=== PATIENT | male | born 1995 | race Caucasian/White ===

== ENCOUNTER 2018-05-08 16:02 | Inpatient (IN) | payer OTHER ==
[~2018-05-08] VITALS: Ht 172.7 cm; Wt 81.6 kg
[2018-05-08 20:20] VITALS: BP 117/79
[2018-05-08] MEDS ORDERED: LORAZEPAM 2 MG/1 ML VIAL IM PRN (20:30)
[2018-05-08] MEDS ORDERED: ONDANSETRON 4 MG/2 ML VIAL IM PRN (20:30)
[2018-05-08] MEDS ORDERED: LOPERAMIDE HCL 2 MG CAPSULE PO PRN ×2 (20:30)
[2018-05-08] MEDS ORDERED: MIRALAX 17 GM POWD.PACK PO PRN (20:30)
[2018-05-08] MEDS ORDERED: 5 DAY TAPER OF LORAZEPAM -SERENITY PROTOCOL PO PRN (20:30)
[2018-05-08] MEDS ORDERED: MAGNESIUM HYDROXIDE 30 ML LIQUID UDC PO PRN (20:30)
[2018-05-08] MEDS ORDERED: ONDANSETRON ODT 4 MG TAB.RAPDIS SL PRN (20:30)
[2018-05-08] MEDS ORDERED: THIAMINE HCL 200 MG/2 ML VIAL IM ONE (20:30)
[2018-05-08] MEDS ORDERED: LORAZEPAM 1 MG TABLET PO PRN ×2 (20:30)
[2018-05-08 21:02] LABS: *AMPHETAMINE, URINE NEGATIVE (NEGATIVE); *BARBITURATE, URINE NEGATIVE (NEGATIVE); *CANNABINOID, URINE POSITIVE (NEGATIVE); *COCCAINE, URINE NEGATIVE (NEGATIVE); *OPIATE, URINE NEGATIVE (NEGATIVE); *PHENCYCLIDINE SCREEN,URINE NEGATIVE (NEGATIVE)
[2018-05-08] MEDS: diphenhydrAMINE 50 MG CAPSULE PO PRN (21:11)
[2018-05-08] MEDS: IBUPROFEN 400 MG TABLET PO PRN (21:11)
[2018-05-08] MEDS ORDERED: HYDR50CA5 PO (22:38)
[2018-05-08] MEDS ORDERED: BUPR200T PO (22:38)
[2018-05-08] MEDS ORDERED: BUPR150T10 PO (22:38)
[2018-05-08] MEDS ORDERED: VIT1CAPS PO (22:38)
[2018-05-08] MEDS ORDERED: PROP20TA7 PO (22:38)
[2018-05-08] MEDS ORDERED: [UNRECOGNIZED DRUG - OTHER] (22:38)
[2018-05-08] MEDS ORDERED: B CO1TAB6 PO (22:38)
[2018-05-08] MEDS ORDERED: CIDE600C PO (22:38)
[2018-05-08] MEDS ORDERED: ACET-73 PO (22:38)
[2018-05-08] MEDS ORDERED: [UNRECOGNIZED DRUG - REMARK] PO (22:38)
[2018-05-08] MEDS ORDERED: NALT50TA PO (22:38)
[2018-05-08 22:50] LABS: BASOPHILS # (AUTO) 0.1 K/uL (0.0-8.0); BASOPHILS % (AUTO) 0.7 % (0.0-2.0); EOSINOPHILS # (AUTO) 0.1 K/uL (0.0-0.7); EOSINOPHILS % (AUTO) 1.5 % (0.0-7.0); HEMATOCRIT 43.1 % (36.7-47.1); HEMOGLOBIN 14.5 g/dL (12.5-16.3); LYMPHOCYTES # (AUTO) 2.1 K/uL (20.0-40.0); LYMPHOCYTES % (AUTO) 25.9 % (20.5-51.5); MEAN CORPUSCULAR HEMOGLOBIN 30.8 uug (23.8-33.4); MEAN CORPUSCULAR HGB CONC 34 g/dL (32.5-36.3); MEAN CORPUSCULAR VOLUME 91.5 fL (73.0-96.2); MONOCYTES # (AUTO) 1.3 K/uL (2.0-10.0); MONOCYTES % (AUTO) 15.9 % (0.0-11.0); NEUTROPHILS # (AUTO) 4.6 K/uL (1.8-8.9); PLATELET COUNT (AUTO) 331 K/uL (152-348); RED BLOOD CELL COUNT(AUTO) 4.71 MIL/uL (4.06-5.63); WHITE BLOOD COUNT (AUTO) 8.1 K/uL (3.6-10.2)
[2018-05-08 22:52] LABS: ETHANOL < 3 MG/DL (0-0)
[2018-05-08 22:58] LABS: THYROID STIMULATING HORMONE 3.077 mIU/mL (0.358-3.740)
[2018-05-08 23:04] LABS: ALANINE AMINOTRANSFERASE 30 U/L (16-63); ALKALINE PHOSPHATASE 60 U/L (50-136); AMYLASE 74 U/L (25-115); ASPARTATE AMINOTRANSFERASE 17 U/L (15-37); BILIRUBIN,TOTAL 0.3 mg/dL (0.2-1.0); CARBON DIOXIDE 32 mmol/L (21-32); CHLORIDE 104 mmol/L (98-107); GLUCOSE 68 mg/dL (74-106); LIPASE 176 U/L (73-393); MAGNESIUM 2.2 mg/dL (1.8-2.4); POTASSIUM 4.3 mmol/L (3.5-5.1); TOTAL PROTEIN, SERUM 7.5 g/dL (6.4-8.2); UREA NITROGEN, BLOOD 10 mg/dL (7-18)
[2018-05-08] MEDS ORDERED: DIPH25CA83 PO (23:21)
[2018-05-08] MEDS ORDERED: KETO120S2 TP (23:21)
[2018-05-08] MEDS ORDERED: KETOCONAZOLE 2% EXT (23:21)
[2018-05-09] VITALS: BP 102/61
[2018-05-09] MEDS ORDERED: PREPARATION H C TP (00:04)
[2018-05-09 01:58] LABS: EOSINOPHILS % (MANUAL) 3 % (0-8); LYMPHOCYTES % (MANUAL) 23 % (20-40); MONOCYTES % (MANUAL) 22 % (2-10); NEUTROPHILS % (MANUAL) 52 % (42-75)
[2018-05-09 04:00] VITALS: BP 92/52
[2018-05-09 08:00] VITALS: BP 97/55
[2018-05-09] MEDS: LORAZEPAM 1 MG TABLET PO SCH ×4 (08:33→20:40)
[2018-05-09] MEDS: FOLIC ACID 1 MG TABLET PO SCH (08:33)
[2018-05-09] MEDS: MULTIVITAMINS,THERAPEUTIC TABLET PO SCH (08:33)
[2018-05-09] MEDS: THIAMINE HCL 100 MG TABLET PO SCH (08:37)
[2018-05-09] MEDS ORDERED: TUBERCULIN,PURIF.PROT.DERIV. 5 TU/0.1 ML TEST ID ONE (09:00)
[2018-05-09 12:18] VITALS: BP 92/47
[2018-05-09 16:30] VITALS: BP 110/72
[2018-05-09] MEDS: buPROPion XL 150 MG TAB.SR.24H PO SCH (17:11)
[2018-05-09 20:00] VITALS: BP 98/62
[2018-05-10] VITALS: BP 111/66
[2018-05-10 04:00] VITALS: BP 106/64
[2018-05-10 07:06] LABS: HEPATITIS B SURFACE AG Negative (Negative)
[2018-05-10 08:00] VITALS: BP 105/69
[2018-05-10] MEDS: FOLIC ACID 1 MG TABLET PO SCH (08:11)
[2018-05-10] MEDS: THIAMINE HCL 100 MG TABLET PO SCH (08:11)
[2018-05-10] MEDS: buPROPion XL 150 MG TAB.SR.24H PO SCH (08:11)
[2018-05-10] MEDS: LORAZEPAM 1 MG TABLET PO SCH ×3 (08:11→20:21)
[2018-05-10] MEDS: MULTIVITAMINS,THERAPEUTIC TABLET PO SCH (08:11)
[2018-05-10 14:12] VITALS: BP 109/74
[2018-05-10] MEDS ORDERED: KETOCONAZOLE 2% SHAMPOO 120 ML BOTTLE TP SCH (15:15)
[2018-05-10 17:40] VITALS: BP 135/82
[2018-05-10 20:00] VITALS: BP 126/78
[2018-05-10] MEDS ORDERED: METHOCARBAMOL 750 MG TABLET PO ONE (21:00)
[2018-05-11] VITALS: BP 123/82
[2018-05-11 08:21] VITALS: BP 118/68
[2018-05-11] MEDS: LORAZEPAM 1 MG TABLET PO SCH ×4 (08:43→20:10)
[2018-05-11] MEDS: THIAMINE HCL 100 MG TABLET PO SCH (08:43)
[2018-05-11] MEDS: FOLIC ACID 1 MG TABLET PO SCH (08:44)
[2018-05-11] MEDS: buPROPion XL 150 MG TAB.SR.24H PO SCH (08:44)
[2018-05-11] MEDS: MULTIVITAMINS,THERAPEUTIC TABLET PO SCH (08:44)
[2018-05-11 12:49] VITALS: BP 121/74
[2018-05-11 17:12] VITALS: BP 107/72
[2018-05-11] MEDS ORDERED: KETOROLAC TROMETHAMINE 30 MG INJ IM PRN (19:30)
[2018-05-11 20:00] VITALS: BP 122/77
[2018-05-11] MEDS: HYDROXYZINE PAMOATE 25 MG CAPSULE PO PRN (20:13)
[2018-05-12 08:23] VITALS: BP 105/71
[2018-05-12] MEDS: MULTIVITAMINS,THERAPEUTIC TABLET PO SCH (08:47)
[2018-05-12] MEDS: FOLIC ACID 1 MG TABLET PO SCH (08:48)
[2018-05-12] MEDS: LORAZEPAM 1 MG TABLET PO SCH ×3 (08:48→20:05)
[2018-05-12] MEDS: THIAMINE HCL 100 MG TABLET PO SCH (08:48)
[2018-05-12] MEDS: buPROPion XL 150 MG TAB.SR.24H PO SCH (08:48)
[2018-05-12 13:23] VITALS: BP 115/72
[2018-05-12] MEDS: MAG HYDROX/AL HYDROX/SIMETH 30 ML LIQUID UDC PO PRN ×2 (14:01→22:59)
[2018-05-12 17:11] VITALS: BP 124/85
[2018-05-12 20:00] VITALS: BP 119/77
[2018-05-12] MEDS: METHOCARBAMOL 750 MG TABLET PO PRN (20:05)
[2018-05-12] MEDS: IBUPROFEN 400 MG TABLET PO PRN (20:05)
[2018-05-13 08:00] VITALS: BP 111/72
[2018-05-13] MEDS: MULTIVITAMINS,THERAPEUTIC TABLET PO SCH (08:32)
[2018-05-13] MEDS: FOLIC ACID 1 MG TABLET PO SCH (08:33)
[2018-05-13] MEDS: THIAMINE HCL 100 MG TABLET PO SCH (08:33)
[2018-05-13] MEDS: buPROPion XL 150 MG TAB.SR.24H PO SCH (08:33)
[2018-05-13] MEDS: METHOCARBAMOL 750 MG TABLET PO PRN ×2 (08:46→20:54)
[2018-05-13] MEDS: LORAZEPAM 1 MG TABLET PO SCH ×2 (08:49→20:54)
[2018-05-13 12:00] VITALS: BP 123/94
[2018-05-13 16:00] VITALS: BP 116/78
[2018-05-13] MEDS: MAG HYDROX/AL HYDROX/SIMETH 30 ML LIQUID UDC PO PRN (19:30)
[2018-05-13 20:04] VITALS: BP 125/71
[2018-05-13] MEDS: CLONIDINE HCL 0.1 MG TABLET PO PRN (22:08)
[2018-05-13] MEDS: diphenhydrAMINE 50 MG CAPSULE PO PRN (22:08)
[2018-05-14 08:00] VITALS: BP 109/70
[2018-05-14] MEDS: THIAMINE HCL 100 MG TABLET PO SCH (08:36)
[2018-05-14] MEDS: FOLIC ACID 1 MG TABLET PO SCH (08:36)
[2018-05-14] MEDS: buPROPion XL 150 MG TAB.SR.24H PO SCH (08:36)
[2018-05-14] MEDS: METHOCARBAMOL 750 MG TABLET PO PRN (08:36)
[2018-05-14] MEDS: MULTIVITAMINS,THERAPEUTIC TABLET PO SCH (08:36)
[2018-05-14 12:00] VITALS: BP 116/73
[2018-05-14] MEDS ORDERED: METH-406 PO (14:45)
[2018-05-14] MEDS ORDERED: CLON0.1T14 PO (14:45)
[2018-05-14] MEDS ORDERED: BUPR-96 PO (14:45)
[2018-05-14] MEDS: IBUPROFEN 400 MG TABLET PO PRN (15:19)
[2018-05-14 16:00] VITALS: BP 119/75
[2018-05-14 20:00] VITALS: BP 118/70
[2018-05-14] MEDS: HYDROXYZINE PAMOATE 25 MG CAPSULE PO PRN (21:15)
[2018-05-14] MEDS: diphenhydrAMINE 50 MG CAPSULE PO PRN (21:15)
[2018-05-14] MEDS: CLONIDINE HCL 0.1 MG TABLET PO PRN (21:15)
[2018-05-14] MEDS: MAG HYDROX/AL HYDROX/SIMETH 30 ML LIQUID UDC PO PRN (21:25)
[2018-05-15] VITALS: BP 106/57
[2018-05-15 04:00] VITALS: BP 95/56
[2018-05-15 08:00] VITALS: BP 120/71
[2018-05-15 08:39] VITALS: BP 120/71
[2018-05-15] MEDS: MULTIVITAMINS,THERAPEUTIC TABLET PO SCH (08:39)
[2018-05-15] MEDS: THIAMINE HCL 100 MG TABLET PO SCH (08:39)
[2018-05-15] MEDS: METHOCARBAMOL 750 MG TABLET PO PRN (08:39)
[2018-05-15] MEDS: FOLIC ACID 1 MG TABLET PO SCH (08:39)
[2018-05-15] MEDS: buPROPion XL 150 MG TAB.SR.24H PO SCH (08:39)
[2018-05-15] MEDS: CLONIDINE HCL 0.1 MG TABLET PO PRN (08:39)
== END 2018-05-15 09:34 | disposition other institution (70) | DRG 895 ==
LOC: SRC 19:04
PROVIDERS: ADMIT Family Medicine Addiction Medicine; ATTEND Family Medicine Addiction Medicine
PROC: HZ2ZZZZ Detoxification Services for Substance Abuse Treatment (ICD-10-PCS; principal; 2018-05-08)
PROC: HZ41ZZZ Group Counseling for Substance Abuse Treatment, Behavioral (ICD-10-PCS; 2018-05-09)
DX: F10.230 Alcohol dependence with withdrawal, uncomplicated (principal); F33.1 Major depressive disorder, recurrent, moderate; F12.90 Cannabis use, unspecified, uncomplicated; F50.81 Binge eating disorder; L30.9 Dermatitis, unspecified; Z80.9 Family history of malignant neoplasm, unspecified; F41.9 Anxiety disorder, unspecified; F17.210 Nicotine dependence, cigarettes, uncomplicated; Z79.899 Other long term (current) drug therapy; F13.230 Sedative, hypnotic or anxiolytic dependence with withdrawal, uncomplicated; I10 Essential (primary) hypertension
CPT/HCPCS: 36415; 70030-TC; 80307; 80349; 83690; 83735; 84443; 85025; 86592; 86705; 86803; 87340; 87806; A4663; G0480; J1885; Q0162; Q0163

== ENCOUNTER 2018-07-21 11:45 | Inpatient (IN) | payer OTHER ==
[~2018-07-21] VITALS: Ht 172.7 cm; Wt 88.5 kg
[~2018-07-21 11:45] MED LIST: ACET-73 PO; B CO1TAB6 PO; BUPR-96 PO; CIDE600C PO; CLON0.1T14 PO; DIPH25CA83 PO; KETO120S3 TP; KETOCONAZOLE 2% EXT; METH-406 PO; NALT50TA PO; PREPARATION H C TP; VIT1CAPS PO
[2018-07-21 12:00] VITALS: BP 131/78
[2018-07-21] MEDS ORDERED: BUPRENORPHINE HCL 2 MG TAB.SUBL SL PRN (13:15)
[2018-07-21] MEDS ORDERED: DICYCLOMINE HCL 20 MG TABLET PO PRN (13:15)
[2018-07-21] MEDS ORDERED: 3 DAY TAPER BUPRENORPHINE -SERENITY PROTOCOL SL PRN (13:15)
[2018-07-21] MEDS ORDERED: diphenhydrAMINE 50 MG CAPSULE PO PRN (13:15)
[2018-07-21] MEDS ORDERED: LORAZEPAM 1 MG TABLET PO PRN ×2 (13:15)
[2018-07-21] MEDS ORDERED: [UNRECOGNIZED DRUG - REMARK] PO PRN (13:15)
[2018-07-21] MEDS ORDERED: APPL (13:33)
[2018-07-21] MEDS ORDERED: CIDE300T3 PO (13:33)
[2018-07-21] MEDS ORDERED: CHRO1TAB6 PO (13:34)
[2018-07-21 13:43] LABS: *AMPHETAMINE, URINE NEGATIVE (NEGATIVE); *BARBITURATE, URINE NEGATIVE (NEGATIVE); *CANNABINOID, URINE POSITIVE (NEGATIVE); *COCCAINE, URINE NEGATIVE (NEGATIVE); *OPIATE, URINE POSITIVE (NEGATIVE); *PHENCYCLIDINE SCREEN,URINE NEGATIVE (NEGATIVE)
[2018-07-21] MEDS: LORAZEPAM 1 MG TABLET PO SCH ×3 (14:52→20:41)
[2018-07-21] MEDS: BUPRENORPHINE HCL 2 MG TAB.SUBL SL SCH ×2 (14:52→20:43)
[2018-07-21 15:07] LABS: ETHANOL < 3 MG/DL (0-0)
[2018-07-21 15:15] LABS: ALANINE AMINOTRANSFERASE 39 U/L (16-63); ALKALINE PHOSPHATASE 66 U/L (50-136); ASPARTATE AMINOTRANSFERASE 19 U/L (15-37); BILIRUBIN,TOTAL 0.4 mg/dL (0.2-1.0); CARBON DIOXIDE 28 mmol/L (21-32); CHLORIDE 103 mmol/L (98-107); CREATININE 0.9 mg/dL (0.6-1.3); GLUCOSE 89 mg/dL (74-106); MAGNESIUM 1.9 mg/dL (1.8-2.4); POTASSIUM 3.9 mmol/L (3.5-5.1); TOTAL PROTEIN, SERUM 6.9 g/dL (6.4-8.2); UREA NITROGEN, BLOOD 16 mg/dL (7-18)
[2018-07-21 15:19] LABS: BASOPHILS # (AUTO) 0.1 K/uL (0.0-8.0); BASOPHILS % (AUTO) 0.9 % (0.0-2.0); EOSINOPHILS # (AUTO) 0.1 K/uL (0.0-0.7); EOSINOPHILS % (AUTO) 1.7 % (0.0-7.0); HEMATOCRIT 45.7 % (36.7-47.1); HEMOGLOBIN 15.5 g/dL (12.5-16.3); LYMPHOCYTES # (AUTO) 1.5 K/uL (20.0-40.0); LYMPHOCYTES % (AUTO) 21.6 % (20.5-51.5); MEAN CORPUSCULAR HEMOGLOBIN 30.8 uug (23.8-33.4); MEAN CORPUSCULAR HGB CONC 34 g/dL (32.5-36.3); MEAN CORPUSCULAR VOLUME 90.9 fL (73.0-96.2); MONOCYTES # (AUTO) 0.8 K/uL (2.0-10.0); MONOCYTES % (AUTO) 11.3 % (0.0-11.0); NEUTROPHILS # (AUTO) 4.4 K/uL (1.8-8.9); NEUTROPHILS % (AUTO) 64.5 % (38.5-71.5); PLATELET COUNT (AUTO) 253 K/uL (152-348); RED BLOOD CELL COUNT(AUTO) 5.02 MIL/uL (4.06-5.63); WHITE BLOOD COUNT (AUTO) 6.8 K/uL (3.6-10.2)
[2018-07-21 16:00] VITALS: BP 108/61
[2018-07-21] MEDS: ONDANSETRON ODT 4 MG TAB.RAPDIS SL PRN (16:38)
[2018-07-21] MEDS ORDERED: ONDANSETRON 4 MG/2 ML VIAL IM PRN (16:45)
[2018-07-21 20:00] VITALS: BP 123/85
[2018-07-21] MEDS: METHOCARBAMOL 750 MG TABLET PO PRN (20:41)
[2018-07-21] MEDS ORDERED: TRAZODONE 50 MG TABLET PO ONE (21:00)
[2018-07-22 04:00] VITALS: BP 106/60
[2018-07-22 08:00] VITALS: BP 101/55
[2018-07-22] MEDS: LORAZEPAM 1 MG TABLET PO SCH ×3 (08:37→21:27)
[2018-07-22] MEDS: FOLIC ACID 1 MG TABLET PO SCH (08:37)
[2018-07-22] MEDS: METHOCARBAMOL 750 MG TABLET PO PRN ×2 (08:40→21:28)
[2018-07-22] MEDS: BUPRENORPHINE HCL 2 MG TAB.SUBL SL SCH ×3 (08:40→21:28)
[2018-07-22] MEDS: THIAMINE HCL 100 MG TABLET PO SCH (08:40)
[2018-07-22] MEDS: IBUPROFEN 400 MG TABLET PO PRN (08:41)
[2018-07-22] MEDS: MULTIVITAMINS,THERAPEUTIC TABLET PO SCH (08:41)
[2018-07-22] MEDS ORDERED: TUBERCULIN,PURIF.PROT.DERIV. 5 TU/0.1 ML TEST ID ONE (09:00)
[2018-07-22 12:00] VITALS: BP 131/73
[2018-07-22] MEDS: buPROPion XL 150 MG TAB.SR.24H PO SCH (14:09)
[2018-07-22] MEDS: ACETAMINOPHEN 325 MG TABLET PO PRN (14:12)
[2018-07-22] MEDS: ONDANSETRON ODT 4 MG TAB.RAPDIS SL PRN (14:12)
[2018-07-22 16:00] VITALS: BP 135/80
[2018-07-22 20:01] VITALS: BP 128/83
[2018-07-23] MEDS: METHOCARBAMOL 750 MG TABLET PO PRN (06:19)
[2018-07-23] MEDS: CLONIDINE HCL 0.1 MG TABLET PO PRN ×2 (06:20→18:56)
[2018-07-23 08:00] VITALS: BP 114/80
[2018-07-23] MEDS: MULTIVITAMINS,THERAPEUTIC TABLET PO SCH (08:14)
[2018-07-23] MEDS: FOLIC ACID 1 MG TABLET PO SCH (08:14)
[2018-07-23] MEDS: THIAMINE HCL 100 MG TABLET PO SCH (08:15)
[2018-07-23] MEDS: buPROPion XL 150 MG TAB.SR.24H PO SCH (08:15)
[2018-07-23] MEDS: LORAZEPAM 1 MG TABLET PO SCH ×2 (08:16→21:40)
[2018-07-23] MEDS ORDERED: BUPRENORPHINE HCL 2 MG TAB.SUBL SL SCH (09:00)
[2018-07-23 12:00] VITALS: BP 125/79
[2018-07-23 13:06] LABS: HEPATITIS B SURFACE AG Negative (Negative)
[2018-07-23 16:00] VITALS: BP 129/82
[2018-07-23] MEDS: ONDANSETRON ODT 4 MG TAB.RAPDIS SL PRN (18:56)
[2018-07-23 20:00] VITALS: BP 112/74
[2018-07-23] MEDS: IBUPROFEN 400 MG TABLET PO PRN (21:53)
[2018-07-24 08:00] VITALS: BP 109/74
[2018-07-24] MEDS: buPROPion XL 150 MG TAB.SR.24H PO SCH (08:13)
[2018-07-24] MEDS: CLONIDINE HCL 0.1 MG TABLET PO PRN ×2 (08:13→16:33)
[2018-07-24] MEDS: THIAMINE HCL 100 MG TABLET PO SCH (08:13)
[2018-07-24] MEDS: FOLIC ACID 1 MG TABLET PO SCH (08:13)
[2018-07-24] MEDS: MULTIVITAMINS,THERAPEUTIC TABLET PO SCH (08:13)
[2018-07-24] MEDS ORDERED: LORAZEPAM 1 MG TABLET PO SCH (09:00)
[2018-07-24] MEDS: IBUPROFEN 400 MG TABLET PO PRN ×2 (11:01→16:32)
[2018-07-24 12:00] VITALS: BP 116/60
[2018-07-24] MEDS ORDERED: CLON0.1T14 PO (13:37)
[2018-07-24] MEDS ORDERED: IBUP-1953 PO (13:38)
[2018-07-24] MEDS ORDERED: BUPR-96 PO (13:38)
[2018-07-24 16:00] VITALS: BP 124/77
[2018-07-24] MEDS: ACETAMINOPHEN 325 MG TABLET PO PRN (16:32)
[2018-07-24] MEDS: METHOCARBAMOL 750 MG TABLET PO PRN (16:32)
[2018-07-24 20:00] VITALS: BP 108/64
[2018-07-25 04:00] VITALS: BP 110/66
[2018-07-25 08:00] VITALS: BP 128/78
[2018-07-25 08:16] VITALS: BP 128/78
[2018-07-25] MEDS: FOLIC ACID 1 MG TABLET PO SCH (08:16)
[2018-07-25] MEDS: THIAMINE HCL 100 MG TABLET PO SCH (08:16)
[2018-07-25] MEDS: buPROPion XL 150 MG TAB.SR.24H PO SCH (08:16)
[2018-07-25] MEDS: MULTIVITAMINS,THERAPEUTIC TABLET PO SCH (08:16)
[2018-07-25] MEDS: CLONIDINE HCL 0.1 MG TABLET PO PRN (08:16)
== END 2018-07-25 09:26 | disposition other institution (70) | DRG 895 ==
LOC: SRC 11:45
PROVIDERS: ADMIT Internal Medicine; ATTEND Internal Medicine
PROC: HZ2ZZZZ Detoxification Services for Substance Abuse Treatment (ICD-10-PCS; principal; 2018-07-21)
PROC: HZ41ZZZ Group Counseling for Substance Abuse Treatment, Behavioral (ICD-10-PCS; principal; 2018-07-21)
PROC: HZ31ZZZ Individual Counseling for Substance Abuse Treatment, Behavioral (ICD-10-PCS; 2018-07-22)
DX: F10.230 Alcohol dependence with withdrawal, uncomplicated (principal); F11.23 Opioid dependence with withdrawal; Y90.0 Blood alcohol level of less than 20 mg/100 ml; F17.210 Nicotine dependence, cigarettes, uncomplicated; F32.9 Major depressive disorder, single episode, unspecified; G47.00 Insomnia, unspecified; F41.1 Generalized anxiety disorder
CPT/HCPCS: 36415; 70030-TC; 80307; 80349; 83735; 85025; 86580; 86592; 86705; 86803; 87340; 87806; A4663; G0480; Q0162